=== PATIENT | male | born 1985 | race Two or more races ===

== ENCOUNTER 2021-09-05 19:10 | Emergency (ER) | payer SELFPAY ==
[2021-09-05 19:13] VITALS: BP 112/78; PULSE 79; TEMP 98.9; BMI 33.3
[2021-09-05] MEDS ORDERED: DEXAMETHASONE 4 MG TABLET (FP) PO ONE (19:15)
== END 2021-09-05 22:08 | disposition home or self-care (01) ==
LOC: JERFT 19:10
DX: R07.0 Pain in throat (principal)
CPT/HCPCS: 87651; 87804; 87807; 99283-25; C9803; U0003; U0005

== ENCOUNTER 2022-03-14 09:34 | Emergency (ER) | payer OTHER ==
[2022-03-14 09:42] VITALS: BP 148/88; PULSE 86; TEMP 98.5; BMI 81.5
== END 2022-03-14 11:15 | disposition home or self-care (01) ==
LOC: JER 09:34
DX: R10.31 Right lower quadrant pain (principal)
CPT/HCPCS: 99283-25